=== PATIENT | male | born 1960 | race Caucasian/White ===

== ENCOUNTER → 2018-04-16 10:31 | Outpatient (CLI) | payer OTHER, SELFPAY ==
--- NOTE | 2018-04-16 10:33 | DI.MRI.S_ITS ---
PROCEDURE: MR LUMBAR SPINE WO CON INDICATIONS: Evaluation TECHNIQUE: Noncontrast sagittal T1 spin echo and T2 fast echo, sagittal STIR, axial T1 and T2 fast spin echo through the lumbar spine. Axial and oblique coronal T1 spin echo and STIR through the sacrum. COMPARISON: [facility], , L-SPINE WITHOUT CONTRAST, 07/30/2008, 9:21. FINDINGS: Image quality: Excellent. Alignment and Curvature: There is minimal anterolisthesis at the L5-S1 level. Bone Marrow: Marrow is of normal overall signal. No acute vertebral body compression fractures. No sacral fractures. Spinal Cord: Conus medullaris terminates at the L1 level. Visualized cord demonstrates normal signal and size. Paraspinous Soft Tissues: No paravertebral masses. There is again seen a simple appearing 6.4 cm right renal cyst. T12-L1: Normal appearance. L1-L2: The disc height is well-preserved. Mild loss of disc signal is seen at this level. Mild generalized disc bulge is seen. No significant neural foraminal or central canal narrowing can be seen. The mild disc pathology has slightly progressed compared to 2009. L2-L3: The disc height is well-preserved. Loss of disc signal is seen at this level. Moderate generalized disc bulge is seen. Along the posterior aspect of the annulus fibrosis an annular fissure seen, as on series 2 image 9. Mild loss of disc height is seen. Loss of disc signal is seen. Mild central canal narrowing is seen. When comparison is made with the prior examination, these findings are similar. L3-L4: Mild loss of disc height is seen. Loss of disc signal is seen. Mild to moderate disc bulge is seen. Moderate facet joint hypertrophy is seen. There is moderate right-sided and mild to moderate left-sided neural foraminal narrowing seen. Mild central canal narrowing is seen. A faintly seen annular fissure is present posteriorly, as on series 4 image 10. These degenerative changes are worse than in 2009. L4-L5: The disc height is well-preserved. Loss of disc signal is seen at this level. Moderate to prominent disc bulge is seen. Moderate facet joint hypertrophy is seen. There is moderate left-sided and at least moderate right-sided neural foraminal narrowing seen. Moderate central canal narrowing is seen. These imaging findings are mildly progressed compared to the prior study. L5-S1: Mild to moderate loss of disc height is signal are seen. Moderate generalized disc bulge is seen. Moderate facet joint hypertrophy is seen. There is moderate left-sided and mild right-sided neural foraminal narrowing seen. Mild central canal narrowing is seen. These degenerative changes are worse than in 2009. Sacrum: Sacral neural foramina appear normal throughout. Superior to the piriformis muscles, the pre-plexal structures appear normal, including the lumbosacral trunk and S1 root. Just anterior to the piriformis muscles, the sacral plexus proper demonstrates normal morphology (lumbosacral trunk, S1 to S3 nerve roots). Inferior to the piriformis muscles, the sciatic nerves appear normal. IMPRESSION: Lower lumbar spine degenerative changes are seen, which have progressed compared to 2009 No significant sacral abnormality is seen. 6.4 cm right renal cyst incidentally noted. Dictated by: Remy Desouza M.D. on 04/16/2018 at 13:26 Approved by: Remy Desouza M.D. on 04/16/2018 at 13:32
== END ==
PROVIDERS: PCP Family Medicine; Visit Provider Physical Medicine & Rehabilitation
DX: N28.1 Cyst of kidney, acquired (principal); M51.16 Intervertebral disc disorders with radiculopathy, lumbar region; M51.17 Intervertebral disc disorders with radiculopathy, lumbosacral region; M48.061 Spinal stenosis, lumbar region without neurogenic claudication; M48.07 Spinal stenosis, lumbosacral region
CPT/HCPCS: 72148

== ENCOUNTER 2018-04-17 08:57 | Outpatient (CLI) | payer OTHER, SELFPAY ==
[2018-04-17] VITALS (9 sets, daily range): BP systolic 94–126; BP diastolic 66–76; PULSE 57–68; RESP 16–18; TEMP 36.7; O2SAT 94–98
--- NOTE | 2018-04-17 08:58 | DI.RAD.S_ITS ---
PROCEDURE: PAIN L/S FACET INJ/BLK 1ST AIMEE COMPARISON: None. INDICATIONS: SPONDYLOSIS FINDINGS: 6 intraoperative fluoroscopy images demonstrate needle placement at L3-L4 and L4-L5 bilateral facet injection. IMPRESSION: Fluoroscopy for pain management. Dictated by: Bronson Wilburn M.D. on 04/17/2018 at 14:52 Approved by: Bronson Wilburn M.D. on 04/17/2018 at 14:53
--- NOTE | 2018-04-17 09:54 | PM.PROC.1 ---
Procedures Date/Time Date of procedure: 04/17/18 Time of procedure: 09:54 General Procedure description: PREOP DIAGNOSIS 1. FACET ARTHROPATHY 2. AXIAL LBP 3. MULTILEVEL DDD POST OP DIAGNOSIS 1. FACET ARTHROPATHY 2. AXIAL LBP 3. MULTILEVEL DDD PROCEDURES 1. FLUORSCOPICALLY GUIDED CONTRAST CONTROLLED FACET JOINT INJECTIONS BILATERAL L3/4, L4/5 PHYSICIAN: Stephen Madison DO INDICATIONS: Chris is referred by Dr. Acevedo for treatment of Axial LBP FINDINGS Multilevel Facet Arthropathy with Clinically significant axial LBP DESCRIPTION OF PROCEDURE Fluoroscopically guided, contrast-controlled bilateral L3/4, L4/5 facet joint injections. Following denial of allergy and review of potential side effects and complications, including, but not necessarily limited to, infection, allergic reaction, local tissue breakdown, stroke, temporary or permanent nerve injury, paralysis, and possible , the patient indicated that the patient understood and agreed to proceed. An informed consent document was signed by the patient, witnessed by a nurse, and placed in the patient's chart. Additionally, other treatment options including medications, modalities, and physical therapy were reviewed with the patient. After review of previous anaesthesic history and IV conscious sedation the patient was deemed safe to proceed with todays procedure with IV conscious sedation as ASA class II designation. Safety time-out was performed to confirm patient ID, procedure to be performed and site of procedure. IV sedation was accomplished with a combination of 5mg of Versed was administered by the RN after DO order, titrated to patient comfort during the course of the procedure while the patient remained responsive to all verbal commands. In the prone position, following sterile prep and drape of the lumbar region, the posterior aspect of the L3/4, L4/5 facet joints were identified fluoroscopically. The skin was anesthetized via a 25-gauge 1.5-inch needle with 1% lidocaine solution into the corresponding facet joints. At this point, a 22-gauge 3.5-inch spinal needle was atraumatically introduced and advanced under fluoroscopic guidance into the corresponding facet joints. Following negative aspiration, injections of approximately 0.2-cc of Isovue 200 confirmed interarticular placement without vascular uptake. The identical procedure was then performed at the L3/4, L4/5 facet joints on the left. Radiological data, including multiple fluoroscopic views of the lumbosacral spine, reveal a spinal needle at the L3/4, L4/5 facet joints bilaterally. Subsequent views show flow of contrast material both superiorly and inferiorly within the joint space without vascular or intrathecal uptake. At this point, a total of 0.5 cc including a mixture of 0.25 cc Marcaine and 0.25 cc betamethasone was injected without complication into each of the corresponding facet joints. The patient tolerated the procedure well without signs or symptoms of complications prior to transfer to the recovery area continued monitoring without incident. The patient was then transferred to the recovery area where they were observed for an appropriate period of time after the injection. The patient reported a VAS score of 7 prior to the procedure and a post-procedure VAS of 0. Total Fluoroscopy Time: 20.3 seconds Total Conscious Sedation Time: 24min POST OP INSTRUCTIONS The patient was provided a Pain Log to continue to record their response to the target-specific procedure prior to follow-up visit with their referring physician. Additionally, specific post-injection care instructions and a contact number to our office were provided if concerns arise regarding possible complications associated with the procedure are suspected. Stephen Madison, Complications: none
[2018-04-17] MEDS: MIDAZOLAM 5 MG/5 ML VIAL IV (10:14)
[2018-04-17] MEDS: LIDOCAINE 1% 20 ML INJ 10 ML INJ (10:22)
[2018-04-17] MEDS: IOPAMIDOL 15 ML VIAL 3 ML INJ (10:22)
[2018-04-17] MEDS: BUPIVACAINE 0.5% (PF) VIAL 5 ML INJ (10:23)
[2018-04-17] MEDS: BETAMETHASONE 30 MG/5 ML MDV 12 MG INJ (10:23)
--- NOTE | 2018-04-17 10:26 | PC.NURSE ---
assisting pt off table and transporting to post proc area in stable condition
--- NOTE | 2018-04-17 10:59 | PC.NURSE ---
pt back from procedure, able to move from w/c to chair, pt alert, resumed monitoring.
--- NOTE | 2018-04-18 13:00 | PC.NURSE ---
FOLLOW UP CALL MADE. LEFT MSG WITH CLINIC PHONE NUMBER AND HOURS FOR ANY QUESTIONS/CONCERNS ON HOME PHONE.
== END 2018-04-17 10:55 ==
LOC: RAD 08:58
PROVIDERS: PCP Family Medicine; Visit Provider Physical Medicine & Rehabilitation
DX: M47.27 Other spondylosis with radiculopathy, lumbosacral region (principal); M47.26 Other spondylosis with radiculopathy, lumbar region; M54.5 Low back pain; M51.16 Intervertebral disc disorders with radiculopathy, lumbar region; M41.50 Other secondary scoliosis, site unspecified; G89.4 Chronic pain syndrome
CPT/HCPCS: 64493; 64494; 99152; J0702; J2250

== ENCOUNTER 2018-06-06 14:24 | Outpatient (CLI) | payer OTHER, SELFPAY ==
[2018-06-06] VITALS (9 sets, daily range): BP systolic 96–130; BP diastolic 63–78; PULSE 56–68; RESP 16; TEMP 36.8; O2SAT 93–98
--- NOTE | 2018-06-06 14:26 | DI.RAD.S_ITS ---
PROCEDURE: PAIN L/S FACET INJ/BLK 1ST AIMEE COMPARISON: [facility], XA, PAIN L/S FACET INJ/BLK 1ST AIMEE, 04/17/2018, 11:18. INDICATIONS: SPONDYLOSIS FINDINGS: There has been successful bilateral localization of the L3, L4, and L5 nerve root regions for medial branch block procedure is (6 total, 3 each bilaterally). IMPRESSION: Successful bilateral L3-L5 nerve root region localization for medial branch block procedure is on the right and the left today. Dictated by: Darvin Guillaume M.D. on 06/06/2018 at 16:58 Approved by: Darvin Guillaume M.D. on 06/06/2018 at 16:59
[2018-06-06] MEDS: MIDAZOLAM 5 MG/5 ML VIAL IV (15:01)
[2018-06-06] MEDS: fentaNYL 100 MCG/2 ML INJ IV (15:09)
[2018-06-06] MEDS: BETAMETHASONE 30 MG/5 ML MDV 12 MG INJ (15:15)
[2018-06-06] MEDS: BUPIVACAINE 0.5% (PF) VIAL 2 ML INJ (15:15)
[2018-06-06] MEDS: LIDOCAINE 1% 20 ML INJ 10 ML INJ (15:15)
[2018-06-06] MEDS: IOPAMIDOL 15 ML VIAL 3 ML INJ (15:15)
--- NOTE | 2018-06-06 15:16 | PC.NURSE ---
ASSISTING PT OFF TABLE AND TRANSPORTING PT TO POST PROC AREA IN STABLE CONDITION
--- NOTE | 2018-06-06 15:27 | PM.PROC.1 ---
Procedures Date/Time Date of procedure: 06/06/18 Time of procedure: 15:27 General Procedure description: POST OP DIAGNOSIS 1. FACET ARTHROPATHY PROCEDURES 1. BILATERAL L3, L4 AND L5 MB BLOCKS PHYSICIAN: DO GILBERT Brown Chris is referred by for treatment of Bilateral Axial LBP. DESCRIPTION OF PROCEDURE Fluoroscopically guided, contrast-controlled bilateral L3, L4 AND L5 medial branch blocks with 0.5cc of 0.5% Marcaine. Following denial of allergy and review of potential side effects and complications, including, but not necessarily limited to, infection, allergic reaction, local tissue breakdown, nerve injury, paralysis, stroke and possible , the patient indicated that the patient understood and agreed to proceed. An informed consent document was signed by the patient, witnessed by a nurse, and placed in the patient's chart. After review of previous anaesthesic history and IV conscious sedation the patient was deemed safe to proceed with todays procedure with IV conscious sedation as ASA class II designation. Safety time-out was performed to confirm patient ID, procedure to be performed and site of procedure. IV sedation was accomplished with a combination of 5mg of Versed and 50mcg of Fentanyl was administered by the RN after DO order, titrated to patient comfort during the course of the procedure while the patient remained responsive to all verbal commands In the prone position, following sterile prep and drape of the lumbar region, the right L3, L4 AND L5 anatomical location of the medial branch of the dorsal ramus was identified fluoroscopically. Subsequently an anesthetic skin wheal using 1% lidocaine solution was initiated at each of the anatomical spots. Subsequently then a 22-gauge 3.5-inch spinal needle was atraumatically introduced and advanced under fluoroscopic guidance at each of the corresponding sites at the right L3, L4 AND L5 MB. After negative aspiration, 0.2 cc of Isovue 200 was injected, confirming placement without vascular or intrathecal uptake. Subsequently then 0.5 cc of 0.5% Marcaine solution was injected at each of the corresponding sites at the Right L3, L4 AND L5 medial branch locations. The identical procedure was replicated on the left. The patient tolerated the procedure well without signs or symptoms of complications. The patient tolerated the procedure well without signs or symptoms of complications prior to transfer to the recovery area continued monitoring without incident. Post-procedure, the patient was monitored initiating provocative activities to measure the amount of relief from block of the facetogenic pain. The patient reported a VAS of 7 prior to the procedure and a post-procedure VAS of 1. It has been a pleasure to assist in the diagnostic and therapeutic care of your patient. Total Fluoroscopy Time: 24.8 seconds Total Conscious Sedation Time: 24min POST OP INSTRUCTIONS The patient was provided with a Pain Log to complete over the next several hours and subsequent days prior to the patient's follow up with the ordering physician. If the patient has teletypewriter installer relief to the solution applied, then they may be a candidate for medial branch rhizotomy. The patient is aware, was provided, once again, with a Pain Log and will follow up with the referring physician for review and clinical correlation Stephen Madison DO Complications: none
--- NOTE | 2018-06-06 15:29 | PC.NURSE ---
Received pt from post procedure via W/C from Loree HEARD for continued monitoring. Pt a little groggy but able to get up and get into chair with standby assist.
== END 2018-06-06 16:03 ==
LOC: RAD 14:25
PROVIDERS: PCP Family Medicine; Visit Provider Physical Medicine & Rehabilitation
DX: M47.816 Spondylosis without myelopathy or radiculopathy, lumbar region (principal); M47.817 Spondylosis without myelopathy or radiculopathy, lumbosacral region
CPT/HCPCS: 64493; 64494; 99152; J0702; J2250; J3010

== ENCOUNTER → 2020-06-08 08:59 | Outpatient (CLI) | payer OTHER, SELFPAY ==
--- NOTE | 2020-06-08 09:00 | DI.RAD.S_ITS ---
PROCEDURE: XR LUMBAR SPINE MIN 4V INDICATIONS: UPDATE IMAGING TECHNIQUE: 5 views of the lumbar spine were acquired. COMPARISON: [facility], CR, XR LUMBAR SPINE WITH OBLIQUES, 08/22/2017, 15:28. [facility], MR, MR LUMBAR SPINE WO CON, 04/16/2018, 10:43. FINDINGS: Bones: 5 nonrib-bearing vertebrae are present. There is normal bony alignment. No vertebral body compression fractures. No suspicious bony lesions. There has been a small degree of interval worsening of the degenerative disc height reduction and facet osteoarthritis at L4-5 and L5-S1. No subluxation has developed. No compression fracture is seen. Soft tissues: Overlying bowel gas pattern is normal. No suspicious soft tissue calcifications. Oblique images: No pars defects. IMPRESSION: A mild interval worsening in low lumbosacral spine degenerative disc height reduction and facet osteoarthritis has developed from August of 2017 to the current study. No compression fracture or significant subluxation has developed. Dictated by: Darvin Guillaume M.D. on 06/08/2020 at 11:08 Approved by: Darvin Guillaume M.D. on 06/08/2020 at 11:14
== END ==
PROVIDERS: Referring Provider Physical Medicine & Rehabilitation; Visit Provider Physical Medicine & Rehabilitation
DX: M47.26 Other spondylosis with radiculopathy, lumbar region (principal); M47.27 Other spondylosis with radiculopathy, lumbosacral region
CPT/HCPCS: 72110